=== PATIENT | female | born 1985 | race American Indian/Alaskan Native ===

== ENCOUNTER 2022-03-11 08:03 | Emergency (ER) | payer SELFPAY ==
[2022-03-11 09:10] LABS: Alanine Aminotransferase 12 units/L (7-56); Albumin 3.9 g/dL (3.9-5); Blood Urea Nitrogen 5 mg/dL (7-17); Calcium 8.6 mg/dL (8.4-10.2); Hemolysis Index 4
[2022-03-11 09:28] LABS: BUN/Creatinine Ratio 10
[2022-03-11 09:43] LABS: Basophils % (Auto) 0.7 % (0.0-1.8); Eosinophils # (Auto) 0.1 K/mm3 (0.0-0.4); Eosinophils % (Auto) 1.8 % (0.0-4.3); Hematocrit 33.5 % (30.3-42.9); Hemoglobin 11.1 gm/dl (10.1-14.3); Lymphocytes # (Auto) 1.2 K/mm3 (1.2-5.4); Lymphocytes % (Auto) 31.5 % (13.4-35.0); Mean Corpuscular HGB Conc 33 % (30-34); Mean Corpuscular Volume 76 fl (79-97); Monocytes # (Auto) 0.4 K/mm3 (0.0-0.8); Platelet Count 254 K/mm3 (140-440); Red Cell Distribution Width 14.3 % (13.2-15.2)
[2022-03-11] MEDS ORDERED: IBUPROFEN 400 MG TAB PO ONE (10:00)
[2022-03-11] MEDS ORDERED: ONDANSETRON 4 MG ODT TAB PO ONE (10:00)
[2022-03-11] MEDS ORDERED: HYDROcodone/ACETAMINOPHEN 5-325 MG TAB PO ONE (10:00)
--- NOTE | 2022-03-11 10:03 | Emergency Department Report ---
ED General Adult HPI - General Chief complaint: Headache Stated complaint: HEADACHE Time Seen by Provider: 03/11/22 09:25 Source: patient Mode of arrival: Ambulatory Limitations: No Limitations - History of Present Illness Initial comments: 37-year-old female no significant past medical history reports to the ER with complaints of a headache for 2 days with nausea. Patient reports taking nothing for her symptoms. Patient denies any history of migraines. Patient reports no history of hypertension. No history of CVA. Patient reports no other acute symptoms at this time. Headache is about 7-8 out of 10. No weakness no dizziness no numbness reported Severity scale (0 -10): 8 - Related Data Previous Rx's Medication Instructions Recorded Last Taken Type Ondansetron [Zofran Odt] 4 mg PO Q12H PRN 3 Days #6 03/11/22 Unknown Rx tab.rapdis Allergies Allergy/AdvReac Type Severity Reaction Status Date / Time No Known Allergies Allergy Unverified 03/11/22 08:17 ED Review of Systems ROS: Stated complaint: HEADACHE Other details as noted in HPI Comment: All other systems reviewed and negative Respiratory: denies: shortness of breath Cardiovascular: denies: chest pain Neurological: headache. denies: weakness, numbness ED Past Medical Hx - Past Medical History Previous Medical History?: No Additional medical history: Vaginal delivery x 6 - Surgical History Past Surgical History?: No - Medications Home Medications: Home Medications Medication Instructions Recorded Confirmed Last Taken Type Ondansetron [Zofran Odt] 4 mg PO Q12H PRN 3 Days #6 03/11/22 Unknown Rx tab.rapdis ED Physical Exam - General Limitations: No Limitations General appearance: alert, in no apparent distress - Head Head exam: Present: atraumatic, normocephalic - Eye Eye exam: Present: normal appearance - ENT ENT exam: Present: mucous membranes moist - Neck Neck exam: Present: normal inspection - Respiratory Respiratory exam: Present: normal lung sounds bilaterally. Absent: respiratory distress - Cardiovascular Cardiovascular Exam: Present: regular rate, normal rhythm. Absent: systolic murmur, diastolic murmur, rubs, gallop - GI/Abdominal GI/Abdominal exam: Present: soft, normal bowel sounds - Extremities Exam Extremities exam: Present: normal inspection - Back Exam Back exam: Present: normal inspection - Neurological Exam Neurological exam: Present: alert, oriented X3, normal gait. Absent: motor sensory deficit - Psychiatric Psychiatric exam: Present: normal affect, normal mood - Skin Skin exam: Present: warm, dry, intact, normal color. Absent: rash ED Course Vital Signs 03/11/22 03/11/22 08:14 12:26 Temperature 98.9 F 98.6 F Pulse Rate 73 68 Respiratory 20 14 Rate Blood Pressure 100/61 90/60 [Right] O2 Sat by Pulse 99 100 Oximetry - Reevaluation(s) Reevaluation #1: 03/11/22 12:16 Patient reports feeling better after receiving oral medications for her headache and nausea. Patient reports she is ready to go home. No further work-up is needed at this time. Labs discussed with with patient labs unremarkable. ED Medical Decision Making - Lab Data Result diagrams: 03/11/22 08:31 03/11/22 08:31 - Medical Decision Making 37-year-old female with no significant past medical history reports to the ER with a headache for 2 days with nausea. Patient has not taking thing for her headaches. On physical exam patient is neurologically intact. No acute clinical findings on physical exam. Patient given oral medications for pain and nausea. On reassessment patient reports a decrease in pain and a decrease in nausea. Patient reports she is feeling better and is ready for discharge home. Patient informed if symptoms are to return or get worse to report back to the ER. Patient informed to also follow her primary care provider for further evaluation and annual physical. Patient agrees with plan of care and verbalizes understanding.. Vital Signs 03/11/22 03/11/22 08:14 12:26 Temperature 98.9 F 98.6 F Pulse Rate 73 68 Respiratory 20 14 Rate Blood Pressure 100/61 90/60 [Right] O2 Sat by Pulse 99 100 Oximetry Critical care attestation.: If time is entered above; I have spent that time in minutes in the direct care of this critically ill patient, excluding procedure time. ED Disposition Clinical Impression: Nausea Headache Qualifiers: Headache type: other headache syndrome Qualified Code(s): G44.89 - Other head ache syndrome Disposition: 01 HOME / SELF CARE / HOMELESS Is pt being admited?: No Condition: Stable Instructions: Nausea, Adult, General Headache Without Cause Prescriptions: Ondansetron [Zofran Odt] 4 mg PO Q12H PRN 3 Days #6 tab.rapdis PRN Reason: Nausea And Vomiting Referrals: CHARU MARVIN MD [Primary Care Provider] - 3-5 Days [facility] [Outside] - 3-5 Days [facility] [place] [Outside] - 3-5 Days [facility] [address] [Outside] - 3-5 Days
[2022-03-11 10:39] LABS: WBC,Urine < 1.0 /HPF (0.0-6.0)
[2022-03-11 10:57] LABS: Bilirubin,Urine Negative (Negative); Blood,Urine Negative (Negative); Color,Urine Straw (Yellow); PH,Urine 7.5 (5.0-7.0)
[2022-03-11 12:27] VITALS: BP 90/60
== END 2022-03-11 12:27 | disposition home or self-care (01) ==
LOC: ED 08:03
DX: R51.9 Headache, unspecified (principal); R11.0 Nausea; Z79.899 Other long term (current) drug therapy
CPT/HCPCS: 36415; 80053; 81001; 85025; 99283; J3490; Q0162